=== PATIENT | male | born 1995 | race African-American/Black ===

== ENCOUNTER 2023-05-28 11:03 | Emergency (ER) | payer BC ==
[2023-05-28 11:09] VITALS: BP 116/71; PULSE 87; RESP 18; TEMP 99.1; BMI 21.3
[2023-05-28 11:40] LABS: BASO % 0.6 % (0-2.0); EOS % 1.1 % (0-4.5); HEMATOCRIT 41.8 % (35.4-49); HEMOGLOBIN 13.7 GM/dL (11.7-16.9); LYMPH % 13.5 % (8-40); MCH 23.6 pg (25.7-33.7); MCHC 32.7 g/dl (32.0-35.9); MEAN PLT VOLUME 7.8 fl (7.5-11.1); MONO % 17.2 % (3.8-10.2); NEUT % 67.6 % (42.8-82.8); PLATELET COUNT 227 10^3/uL (134-434); RBC 5.81 M/mm3 (4.00-5.60); WHITE BLOOD COUNT 4.8 K/mm3 (4.0-10.0)
[2023-05-28 11:55] LABS: POTASSIUM 4.3 mmol/L (3.5-5.1)
[2023-05-28 11:56] LABS: CALCIUM 9.5 mg/dL (8.5-10.1)
[2023-05-28 11:57] LABS: BLOOD UREA NITROGEN 13.5 mg/dL (7-18)
[2023-05-28 12:00] LABS: CREATININE 0.9 mg/dL (0.55-1.3)
== END 2023-05-28 12:42 | disposition home or self-care (01) ==
LOC: JER 11:03
DX: R00.2 Palpitations (principal); R07.9 Chest pain, unspecified
CPT/HCPCS: 36415; 71046-TC-FY; 80048; 83735; 84443; 85025; 93005; 93010; 99285-25

== ENCOUNTER 2023-05-29 01:45 | Emergency (ER) | payer BC ==
[2023-05-29 01:58] VITALS: BP 119/57; PULSE 114; RESP 22; TEMP 98.9; BMI 21.2
[2023-05-29] MEDS ORDERED: FAMOTIDINE 10 MG/ML VIAL IVPB ONE (02:24)
[2023-05-29] MEDS ORDERED: ONDANSETRON 4 MG/2 ML VIAL ONE (02:24)
[2023-05-29] MEDS ORDERED: FAMOTIDINE 20 MG/50 ML IVPB 20 MG/50 ML MG IVPB ONE (02:29)
[2023-05-29] MEDS ORDERED: MAG HYDROX/AL HYDROX/SIMETH 30 ML UNIT-DOSE CUP PO ONE (02:29)
[2023-05-29] MEDS ORDERED: SODIUM CHLORIDE 1,000 ML IV STA (02:29)
[2023-05-29] MEDS ORDERED: ONDANSETRON 4 MG/2 ML VIAL IVPUSH ONE (02:29)
[2023-05-29] MEDS ORDERED: ACETAMINOPHEN 1000 MG/100 ML BAG IVPB ONE (02:29)
[2023-05-29] MEDS ORDERED: ACETAMINOPHEN INJECTION 100 ML IVPB ONE (02:37)
[2023-05-29 03:07] LABS: BASO % 0.4 % (0-2.0); EOS % 0.1 % (0-4.5); LYMPH % 4.1 % (8-40); MCH 23.9 pg (25.7-33.7); MCHC 33.3 g/dl (32.0-35.9); MEAN CELL VOLUME 71.8 fl (80-96); MONO % 13.4 % (3.8-10.2); PLATELET COUNT 239 10^3/uL (134-434); RBC 5.85 M/mm3 (4.00-5.60); RDW 14.2 % (11.9-15.9); WHITE BLOOD COUNT 8.2 K/mm3 (4.0-10.0)
[2023-05-29 03:25] LABS: INR 1.12 (0.83-1.09)
[2023-05-29 03:28] LABS: CALCIUM 9.4 mg/dL (8.5-10.1)
[2023-05-29 03:28] LABS: ACTIVATED PTT 27.5 SECONDS (25.2-36.5)
[2023-05-29 03:29] LABS: ALBUMIN 4.3 g/dl (3.4-5.0); BLOOD UREA NITROGEN 16.3 mg/dL (7-18)
[2023-05-29 03:32] LABS: CREATININE 1.4 mg/dL (0.55-1.3)
[2023-05-29 03:34] LABS: BILIRUBIN,TOTAL 0.2 mg/dL (0.2-1); TOT PROT 8.2 g/dl (6.4-8.2)
[2023-05-29 03:35] LABS: LACTIC ACID 2.2 mmol/L (0.4-2.0)
[2023-05-29] MEDS ORDERED: AZITHROMYCIN 500 MG TABLET PO ONE (03:58)
[2023-05-29] MEDS ORDERED: AZITHROMYCIN 500 MG TABLET ONE (04:11)
== END 2023-05-29 04:20 | disposition home or self-care (01) ==
LOC: JER 01:45
PROC: 3E033GC Introduction of Other Therapeutic Substance into Peripheral Vein, Percutaneous Approach (ICD-10-PCS; principal; 2023-05-29)
PROC: 3E033NZ Introduction of Analgesics, Hypnotics, Sedatives into Peripheral Vein, Percutaneous Approach (ICD-10-PCS; 2023-05-29)
PROC: 3E033GC Introduction of Other Therapeutic Substance into Peripheral Vein, Percutaneous Approach (ICD-10-PCS; 2023-05-29)
DX: R06.02 Shortness of breath (principal); R07.9 Chest pain, unspecified; R10.9 Unspecified abdominal pain; R11.10 Vomiting, unspecified; U07.1 COVID-19
CPT/HCPCS: 0241U-QW; 36415; 80053; 83605; 83690; 84484; 85025; 85610; 85730; 93005; 93010; 99284-25